=== PATIENT | female | born 1960 | race Caucasian/White ===

== ENCOUNTER → 2018-03-13 | Outpatient (CLI) | payer MEDICARE, OTHER ==
[~2018-03-13] MED LIST: ACYCLOVIR 400400 MG; AUGMENTIN 875875 MG PO; CALCIUM; CYMBALTA60 MG; LYRICA; NEURONTIN600 MG PO; NORCO 5-325 TA1 EACH PO; PERCOCET 7.5-31 EACH PO
== END ==
LOC: M.RAD 11:05 → M.MRI 11:05
DX: Z12.31 Encounter for screening mammogram for malignant neoplasm of breast (principal); M75.101 Unspecified rotator cuff tear or rupture of right shoulder, not specified as traumatic; M75.21 Bicipital tendinitis, right shoulder; M19.011 Primary osteoarthritis, right shoulder

== ENCOUNTER → 2018-04-04 | Outpatient (CLI) | payer MEDICARE, OTHER | LOC: M.RAD 03-17 14:20 | DX: N63.10 Unspecified lump in the right breast, unspecified quadrant (principal); N63.20 Unspecified lump in the left breast, unspecified quadrant; R92.2 Inconclusive mammogram; R92.8 Other abnormal and inconclusive findings on diagnostic imaging of breast; Z78.0 Asymptomatic menopausal state ==

== ENCOUNTER → 2019-03-16 | Outpatient (CLI) | payer MEDICARE, OTHER | LOC: M.RAD 08:52 | DX: Z12.31 Encounter for screening mammogram for malignant neoplasm of breast (principal) ==